=== PATIENT | male | born 1945 | race Caucasian/White ===

== ENCOUNTER → 2017-08-24 | Outpatient (CLI) | payer MEDICARE ==
[~2017-08-24] MED LIST: ATORVASTATIN CA20 MG PO
--- NOTE | 2017-08-24 09:44 | Diagnostic Imaging Report ---
PROCEDURE:ABDOMEN-1VIEW ([facility]) TECHNIQUE:Supine AP abdomen totaling 2 radiographs INDICATION:Renal stones COMPARISON:Patients [facility], DX, ABDOMEN-1VIEW (KUB), 02/23/2017, 10:45. FINDINGS: No conspicuous calcifications over the kidneys, urinary bladder or ureters. Multiple pelvic phleboliths. Intact skeleton with multilevel degenerative disc disease and apex right scoliosis centered at L3. Normal bowel gas pattern. CONCLUSION: No conspicuous nephrolithiasis. No interval change from February 2017. Dictated by: Tariq Nair M.D. on 08/24/2017 at 9:47 Electronically approved by: Tariq Nair M.D. on 08/24/2017 at 9:47
== END ==
LOC: RAD 09:15
PROVIDERS: ATTEND Urology
DX: Z87.442 Personal history of urinary calculi (principal)
CPT/HCPCS: 74018

== ENCOUNTER → 2018-03-08 | Outpatient (CLI) | payer MEDICARE ==
--- NOTE | 2018-03-08 08:50 | Diagnostic Imaging Report ---
ADDENDUM #1 ADDENDUM: Reason for exam: Follow-up of known renal stones Signed by: Dr. Trevor Majano MD on 03/17/2018 5:43 PM ORIGINAL REPORT EXAMINATION: ABDOMEN-1VIEW ([facility]) COMPARISON: [facility]UB 08/24/2017. FINDINGS: Bowel gas partially obscures visualization of the kidneys. No evidence of stone overlying the kidneys, urinary bladder, or ureters. Multiple pelvic phleboliths. There is a nonobstructive bowel gas pattern. No acute bony abnormality. IMPRESSION: No evidence of urinary stone. Signed by: Dr. Trevor Majano MD on 03/08/2018 8:47 AM
== END ==
LOC: RAD 08:05
PROVIDERS: ATTEND Urology
DX: N20.0 Calculus of kidney (principal)
CPT/HCPCS: 74018

== ENCOUNTER → 2020-04-16 | Outpatient (CLI) | payer MEDICARE | LOC: RAD 12:18 | PROVIDERS: ATTEND Urology | DX: N20.0 Calculus of kidney (principal) | CPT/HCPCS: 74018 ==

== ENCOUNTER 2020-06-26 22:38 | Emergency (ER) | payer MEDICARE ==
[~2020-06-26] VITALS: Ht 177.8 cm; Wt 81.6 kg
== END 2020-06-26 23:29 | disposition home or self-care (01) ==
LOC: ER 23:21
DX: U07.1 COVID-19 (principal); R05 Cough; R06.02 Shortness of breath; E78.5 Hyperlipidemia, unspecified; E78.00 Pure hypercholesterolemia, unspecified
CPT/HCPCS: 99282

== ENCOUNTER 2020-06-28 19:36 | Emergency (ER) | payer MEDICARE ==
[~2020-06-28] VITALS: Ht 177.8 cm; Wt 81.6 kg
[2020-06-28 20:12] LABS: BASOPHILS % 0.1 % (0.0-1.0); HEMATOCRIT 41.9 % (38.2-49.6); HEMOGLOBIN 14.4 g/dL (14.0-18.0); LYMPHOCYTES # (AUTO) 0.6 (1.0-3.2); LYMPHOCYTES % 6.7 % (18.0-39.1); MEAN CORPUSCULAR HEMOGLOBIN 30.5 pg (28-32); MEAN CORPUSCULAR HGB CONC 34.4 g/dL (31-35); MEAN CORPUSCULAR VOLUME 88.8 fL (81-99); MONOCYTES # (AUTO) 0.4 (0.2-0.8); MONOCYTES % 4.4 % (4.4-11.3); NEUTROPHILS # (AUTO) 7.8 (2.1-6.9); PLATELET COUNT 236 x10e3/uL (140-360); RED BLOOD COUNT 4.72 x10e6/uL (4.3-5.7); RED CELL DISTRIBUTION WIDTH 12.3 % (11.7-14.4)
[2020-06-28] MEDS ORDERED: LACTATED RINGER'S 1,000 ML INJ ONE (20:15)
[2020-06-28 20:23] LABS: INR 0.95; PROTHROMBIN TIME 13.3 seconds (11.9-14.5)
[2020-06-28 20:29] LABS: ALANINE AMINOTRANSFERASE 68 IU/L (0-55); ALBUMIN 3.3 g/dL (3.5-5.0); ALBUMIN/GLOBULIN RATIO 0.9 (0.8-2.0); ALKALINE PHOSPHATASE 62 IU/L (40-150); BLOOD UREA NITROGEN 22 mg/dL (7-26); BUN/CREATININE RATIO 19 (6-25); CARBON DIOXIDE 24 mmol/L (22-29); CHLORIDE 100 mmol/L (98-107); CREATININE, SERUM 1.16 mg/dL (0.72-1.25); EST GLOMERULAR FILTRATION RATE > 60 ML/MIN (60-); GLUCOSE 151 mg/dL (74-118); SODIUM 135 mmol/L (136-145)
[2020-06-28] MEDS ORDERED: IOPAMIDOL 370 MG/ML 200 ML INFUS..BTL INJ ONE (21:04)
[2020-06-28] MEDS ORDERED: SODIUM CHLORIDE 0.9% 100 ML ONE (21:05)
== END 2020-06-28 22:32 | disposition home or self-care (01) ==
LOC: ER 19:45
DX: U07.1 COVID-19 (principal); K62.5 Hemorrhage of anus and rectum; R19.7 Diarrhea, unspecified; E78.5 Hyperlipidemia, unspecified; Z87.19 Personal history of other diseases of the digestive system
CPT/HCPCS: 36415; 74174; 80053; 85025; 85610; 86850; 86900; 99284; J7050; J7121; Q9967

== ENCOUNTER → 2020-08-27 | Outpatient (CLI) | payer MEDICARE | LOC: RAD 10:47 | PROVIDERS: ATTEND Internal Medicine Gastroenterology | DX: Z11.52 Encounter for screening for COVID-19 (principal); I10 Essential (primary) hypertension; E66.3 Overweight; Z01.818 Encounter for other preprocedural examination; Z71.3 Dietary counseling and surveillance; Z86.010 Personal history of colon polyps; Z80.0 Family history of malignant neoplasm of digestive organs | CPT/HCPCS: 71046 ==

== ENCOUNTER → 2020-10-26 | Outpatient (CLI) | payer MEDICARE | LOC: RAD 10:23 | PROVIDERS: ATTEND Urology | DX: N20.0 Calculus of kidney (principal) | CPT/HCPCS: 74018 ==

== ENCOUNTER 2021-04-26 12:49 | Emergency (ER) | payer MEDICARE ==
[~2021-04-26] VITALS: Ht 177.8 cm; Wt 81.6 kg
== END 2021-04-26 13:29 | disposition home or self-care (01) ==
LOC: ER 13:08
DX: I10 Essential (primary) hypertension (principal); E78.5 Hyperlipidemia, unspecified; Z86.16 Personal history of COVID-19; Z87.19 Personal history of other diseases of the digestive system
CPT/HCPCS: 99282

== ENCOUNTER → 2023-10-29 | Outpatient (REF) | payer MEDICARE | LOC: RAD 10:22 | PROVIDERS: ATTEND Urology | DX: N20.0 Calculus of kidney (principal) | CPT/HCPCS: 74018 ==